=== PATIENT | female | born 1990 | race Hispanic/Latino ===

== ENCOUNTER → 2023-04-14 | Outpatient (CLI) | payer OTHER ==
[~2023-04-14] MED LIST: PROHANCE 279.3MG/ML 15ML VIAL ONE
== END ==
LOC: M PLAIMG 10:19
PROVIDERS: ATTEND Family Medicine
DX: R19.00 Intra-abdominal and pelvic swelling, mass and lump, unspecified site (principal); D25.1 Intramural leiomyoma of uterus; N88.8 Other specified noninflammatory disorders of cervix uteri
CPT/HCPCS: 72197; A9576

== ENCOUNTER 2023-09-15 09:05 | Outpatient (CLI) | payer OTHER ==
[~2023-09-15] VITALS: Ht 162.6 cm; Wt 75.5 kg
[~2023-09-15 09:05] MED LIST changes: +ALBUTEROL SULFATE 2.5MG/0.5ML INH NEB SOLN INH PRN; +EPINEPHrine INJ 1 MG/ML 1ML AMP IM PRN; -PROHANCE 279.3MG/ML 15ML VIAL ONE; +diphenhydrAMINE 50MG/ML VIAL IV PRN; +methylPREDNISolone 125MG 2ML VIAL IV PRN
[2023-09-15 09:10] VITALS: BP 119/72; O2SAT 98
[2023-09-15] MEDS: FERRIC CARBOXYMALTOSE INJ 750 MG in NS 250 ML (>50kg) IV ONE (09:25)
[2023-09-15] MEDS ORDERED: NS 1,000 ML IV SCH (09:30)
[2023-09-15 10:40] VITALS: BP 103/57; O2SAT 100
== END 2023-09-15 10:50 | disposition home or self-care (01) ==
LOC: M INFU 09:05
PROVIDERS: ATTEND Student in an Organized Health Care Education/Training Program
DX: D50.9 Iron deficiency anemia, unspecified (principal)
CPT/HCPCS: 96365; J1439

== ENCOUNTER 2023-09-22 15:55 | Outpatient (CLI) | payer OTHER ==
[~2023-09-22] VITALS: Ht 162.6 cm; Wt 75.0 kg
[2023-09-22 15:55] VITALS: BP 127/60; O2SAT 98
[~2023-09-22 15:55] MED LIST changes: +FERRIC CARBOXYMALTOSE INJ 750 MG in NS 250 ML (>50kg) IV ONE; +NS 1,000 ML IV SCH
[2023-09-22] MEDS ORDERED: NS 1,000 ML IV SCH (16:00)
[2023-09-22] MEDS: FERRIC CARBOXYMALTOSE INJ 750 MG in NS 250 ML (>50kg) IV ONE (16:01)
[2023-09-22 17:06] VITALS: BP 124/63; O2SAT 98
== END 2023-09-22 17:10 ==
LOC: M INFU 15:55
PROVIDERS: ATTEND Student in an Organized Health Care Education/Training Program
DX: D50.9 Iron deficiency anemia, unspecified (principal)
CPT/HCPCS: 96365; J1439

== ENCOUNTER → 2023-09-28 | Outpatient (CLI) | payer OTHER | LOC: M RAD 10:38 | PROVIDERS: ATTEND Obstetrics & Gynecology | DX: D25.1 Intramural leiomyoma of uterus (principal); D25.0 Submucous leiomyoma of uterus; N88.8 Other specified noninflammatory disorders of cervix uteri ==

== ENCOUNTER 2023-12-18 08:53 | Emergency (ER) | payer OTHER ==
[~2023-12-18] VITALS: Ht 162.6 cm; Wt 77.6 kg
[2023-12-18] MEDS ORDERED: [UNRECOGNIZED DRUG - CODE] PO (09:01)
[2023-12-18] MEDS: methocarbamoL 500 MG TAB PO ONE (11:53)
[2023-12-18] MEDS: BENZONATATE 100MG CAPSULE PO ONE (11:53)
[2023-12-18] MEDS: KETOROLAC 60MG 2ML VIAL IM ONE (11:55)
[2023-12-18] MEDS: LIDOCAINE 5% (LIDODERM) PATCH TD ONE (11:55)
[2023-12-18] MEDS ORDERED: METH-1164 PO (12:41)
[2023-12-18] MEDS ORDERED: BENZ200C70 PO (12:41)
[2023-12-18 12:58] VITALS: BP 113/56; TEMP 97.3; O2SAT 100
== END 2023-12-18 12:59 | disposition home or self-care (01) ==
LOC: M ED 08:53
DX: S16.1XXA Strain of muscle, fascia and tendon at neck level, initial encounter (principal); R05.9 Cough, unspecified; X58.XXXA Exposure to other specified factors, initial encounter; Y92.9 Unspecified place or not applicable; Y93.9 Activity, unspecified; Y99.9 Unspecified external cause status
CPT/HCPCS: 71046; 96372; 99283; J1885